=== PATIENT | female | born 1995 | race Caucasian/White ===

== ENCOUNTER 2020-02-04 15:04 | Emergency (ER) | payer OTHER, SELFPAY ==
[~2020-02-04] VITALS: Ht 165.1 cm; Wt 72.1 kg
[2020-02-04 15:10] VITALS: Ht 165.1 cm; Wt 72.1 kg
[2020-02-04 17:11] VITALS: BP 109/64
== END 2020-02-04 17:11 | disposition home or self-care (01) ==
LOC: ED 15:04
DX: U07.1 COVID-19 (principal); J06.9 Acute upper respiratory infection, unspecified
CPT/HCPCS: U0003-CS